=== PATIENT | female | born 1970 | race Caucasian/White ===

== ENCOUNTER 2023-04-26 03:00 | Emergency (ER) | payer OTHER ==
[~2023-04-26] VITALS: Ht 172.7 cm; Wt 81.6 kg
[2023-04-26] MEDS ORDERED: PRED20TA PO (03:41)
[2023-04-26] MEDS ORDERED: PSEU120T57 PO (03:41)
[2023-04-26] MEDS ORDERED: predniSONE 20 MG TABLET ONE (03:52)
[2023-04-26] MEDS ORDERED: PSEUDOEPHEDRINE HCL 30 MG TABLET ONE (03:53)
[2023-04-26] MEDS: predniSONE 20 MG TABLET PO ONE (03:54)
[2023-04-26] MEDS: PSEUDOEPHEDRINE HCL 30 MG TABLET PO ONE (03:54)
[2023-04-26 04:06] VITALS: BP 114/84; O2SAT 97
== END 2023-04-26 04:01 | disposition home or self-care (01) ==
LOC: ER 03:10
DX: H65.91 Unspecified nonsuppurative otitis media, right ear (principal); E03.9 Hypothyroidism, unspecified; F17.210 Nicotine dependence, cigarettes, uncomplicated; Z79.899 Other long term (current) drug therapy
CPT/HCPCS: 99283; 99406; J7512; A4606; A4663